=== PATIENT | male | born 1965 | race Caucasian/White ===

== ENCOUNTER 2021-01-08 20:59 | Emergency (ER) | payer BC ==
[2021-01-08 22:25] LABS: HEMOGLOBIN 14.4 gm/dl (14.0-17.5); RED BLOOD COUNT 4.64 M/UL (4.20-5.50); WHITE BLOOD COUNT 18.7 K/UL (4.5-11.0)
== END 2021-01-09 02:30 | disposition short-term general hospital (02) ==
LOC: ER1 20:59
PROVIDERS: Emergency Medicine
DX: I95.9 Hypotension, unspecified (principal); N17.9 Acute kidney failure, unspecified; M62.82 Rhabdomyolysis; F17.200 Nicotine dependence, unspecified, uncomplicated; Z20.822 Contact with and (suspected) exposure to COVID-19
CPT/HCPCS: 71045; 80053; 82550; 82553; 83605; 83735; 83874; 83880; 84100; 84439; 84443; 84484; 85025; 85610; 85730; 87040; 93005; 99285; G0480; U0002

== ENCOUNTER 2021-02-13 18:17 | Emergency (ER) | payer BC ==
[2021-02-13 21:30] LABS: HEMOGLOBIN 15.5 gm/dl (14.0-17.5); RED BLOOD COUNT 4.83 M/UL (4.20-5.50)
== END 2021-02-14 11:25 | disposition short-term general hospital (02) ==
LOC: ER1 18:17
PROVIDERS: Physician Assistant
DX: K57.20 Diverticulitis of large intestine with perforation and abscess without bleeding (principal); I10 Essential (primary) hypertension; F17.200 Nicotine dependence, unspecified, uncomplicated; Z20.822 Contact with and (suspected) exposure to COVID-19
CPT/HCPCS: 80053; 81001; 83605; 83690; 85025; 87040; 87086; 96365; 96375; 96376; 99284; J2270; J2405; J2543; J7030; Q9967; U0002

== ENCOUNTER → 2021-03-28 | Outpatient (CLI) | payer BC | LOC: KOH-I 13:28 | DX: M17.0 Bilateral primary osteoarthritis of knee (principal) | CPT/HCPCS: 73560 ==

== ENCOUNTER 2021-05-24 08:39 | Emergency (ER) | payer BC ==
[2021-05-24 09:22] LABS: RED BLOOD COUNT 4.87 M/UL (4.20-5.50); WHITE BLOOD COUNT 9.4 K/UL (4.5-11.0)
[2021-05-24 09:45] LABS: BUN/CREATININE RATIO 12 (0-10)
== END 2021-05-24 12:30 | disposition home or self-care (01) ==
LOC: ER1 08:39
PROVIDERS: Emergency Medicine
DX: I10 Essential (primary) hypertension (principal); F10.10 Alcohol abuse, uncomplicated; F17.200 Nicotine dependence, unspecified, uncomplicated; Z90.89 Acquired absence of other organs
CPT/HCPCS: 36415; 70450; 71045; 80053; 81001; 82550; 82553; 83874; 84484; 85025; 93005; 96374; 99284; G0480

== ENCOUNTER 2021-08-29 15:28 | Inpatient (IN) | payer BC ==
[~2021-08-29] VITALS: Ht 190.5 cm; Wt 107.0 kg
[2021-08-29 15:52] LABS: RED BLOOD COUNT 5.24 M/UL (4.20-5.50); WHITE BLOOD COUNT 18.8 K/UL (4.5-11.0)
[2021-08-29] MEDS ORDERED: COREG 12.5MG12.5 MG PO (21:44)
[2021-08-29] MEDS ORDERED: LISINOPRIL40 MG PO (21:44)
[2021-08-29] MEDS ORDERED: HYDROCHLOROTHIA50 MG PO (21:45)
[2021-08-29] MEDS ORDERED: PIROXICAM20 MG PO (21:47)
[2021-08-29] MEDS ORDERED: NEURONTIN600 MG PO (21:48)
[2021-08-29] MEDS ORDERED: PERCOCET 5-3251 EACH PO (21:48)
[2021-08-29] MEDS ORDERED: PRAVASTATIN SOD20 MG PO (21:49)
[2021-08-30 05:55] LABS: HEMOGLOBIN 14.4 gm/dl (14.0-17.5); RED BLOOD COUNT 4.72 M/UL (4.20-5.50); WHITE BLOOD COUNT 20.9 K/UL (4.5-11.0)
[2021-08-30] MEDS ORDERED: TIZANIDINE HCL2 MG PO (10:28)
[2021-08-30] MEDS ORDERED: FLONASE 0.05% N16 GM (10:28)
[2021-08-30] MEDS ORDERED: PROAIR HFA8.5 GM INH (10:28)
[2021-08-30] MEDS ORDERED: CYANOCOBAL1000 MCG/1 INJ (10:29)
[2021-08-30] MEDS ORDERED: TESTOSTERO200 MG/1 M IM (10:29)
[2021-08-31 05:23] LABS: HEMOGLOBIN 12.4 gm/dl (14.0-17.5); RED BLOOD COUNT 4.06 M/UL (4.20-5.50)
[2021-08-31 05:53] LABS: BUN/CREATININE RATIO 26 (0-10)
[2021-09-01 05:34] LABS: HEMOGLOBIN 11.7 gm/dl (14.0-17.5); RED BLOOD COUNT 3.89 M/UL (4.20-5.50); WHITE BLOOD COUNT 17.1 K/UL (4.5-11.0)
[2021-09-01 05:45] LABS: BUN/CREATININE RATIO 23 (0-10)
[2021-09-02 04:50] LABS: HEMOGLOBIN 11.3 gm/dl (14.0-17.5); RED BLOOD COUNT 3.78 M/UL (4.20-5.50); WHITE BLOOD COUNT 18.1 K/UL (4.5-11.0)
[2021-09-02 05:11] LABS: BUN/CREATININE RATIO 22 (0-10)
[2021-09-03 03:42] LABS: HEMOGLOBIN 11.3 gm/dl (14.0-17.5); RED BLOOD COUNT 3.74 M/UL (4.20-5.50); WHITE BLOOD COUNT 24.4 K/UL (4.5-11.0)
[2021-09-03 03:46] LABS: BUN/CREATININE RATIO 19 (0-10)
--- NOTE | 2021-09-03 21:59 | NUR ---
PTS DRESSING TO ABD AREA NOTED TO BE SATURATED WITH BLOOD AT TOP OF SITE . DRESSING CHANGED VIA STERILE TECHNIQUE. CLEANED WITH BETADINE AND INCISION NOTED TO BE CLEAN AND INTACT. WILFRID ALL INTACT AND CLEAN. RED TOWARDS BOTTOM OF ABD AREA. PINROSE DRAINS INTACT TO TOP AND BOTTOM OF INCISION. LARGE BLOOD CLOT TO TOP PINROSE. REPLACED GUAZE AND ISLAND DRESSINGS TO SITE. PT TOLERATED WELL.
[2021-09-04 02:58] LABS: RED BLOOD COUNT 3.93 M/UL (4.20-5.50); WHITE BLOOD COUNT 27.7 K/UL (4.5-11.0)
[2021-09-04 03:25] LABS: BUN/CREATININE RATIO 15 (0-10)
--- NOTE | 2021-09-04 11:40 | NUR ---
PT BEING TRANSPORTED TO ENDO FOR PROCEDURE
--- NOTE | 2021-09-04 12:15 | NUR ---
PT BACK FROM PROCEDURE, PT ALERT AND ORIENTED,VSS, WILL CONTINUE TO MONITOR
[2021-09-05 05:07] LABS: HEMOGLOBIN 11.5 gm/dl (14.0-17.5); RED BLOOD COUNT 3.85 M/UL (4.20-5.50); WHITE BLOOD COUNT 19.2 K/UL (4.5-11.0)
[2021-09-05 05:35] LABS: BUN/CREATININE RATIO 12 (0-10)
[2021-09-05 12:21] LABS: ADENOVIRUS F 40/41 Not Detected (Negative); ASTROVIRUS Not Detected (Negative); CAMPYLOBACTER Not Detected (Negative); CRYPTOSPORIDIUM Not Detected (Negative); E.COLI 0157 Not Detected (Negative); ENTAMOEBA HISTOLYTICA Not Detected (Negative); ENTEROAGGREGATIVE E.COLI (EAEC Not Detected (Negative); ENTEROPATHOGENIC E.COLI (EPEC) Not Detected (Negative); ENTEROTOXIGENIC E.COLI (ETEC) Not Detected (Negative); GIARDIA LAMBLIA Not Detected (Negative); NOROVIRUS GI/GII Not Detected (Negative); PLESIOMONAS SHIGELLOIDES Not Detected (Negative); ROTOVIRUS A Not Detected (Negative); SALMONELLA Not Detected (Negative); SAPOVIRUS Not Detected (Negative); SHIG/ENTEROINVAS.ECOLI (EIEC) Not Detected (Negative); SHIGA-LIK TOX.PRO.E.COLI (STEC Not Detected (Negative); VIBRIO Not Detected (Negative); VIBRIO CHOLERAE Not Detected (Negative); YERSINIA ENTEROCOLITICA Not Detected (Negative)
[2021-09-06 04:02] LABS: HEMOGLOBIN 11.8 gm/dl (14.0-17.5); RED BLOOD COUNT 3.97 M/UL (4.20-5.50); WHITE BLOOD COUNT 15.6 K/UL (4.5-11.0)
[2021-09-06 04:18] LABS: BUN/CREATININE RATIO 13 (0-10)
[2021-09-07 06:06] LABS: HEMOGLOBIN 12.4 gm/dl (14.0-17.5); RED BLOOD COUNT 4.22 M/UL (4.20-5.50); WHITE BLOOD COUNT 16.6 K/UL (4.5-11.0)
[2021-09-07 06:27] LABS: BUN/CREATININE RATIO 13 (0-10)
[2021-09-07] MEDS ORDERED: COLACE100 MG PO (11:31)
[2021-09-07] MEDS ORDERED: METRONIDAZOLE500 MG PO (11:31)
[2021-09-07] MEDS ORDERED: PERCOCET 5-3251 EACH PO (11:31)
[2021-09-07] MEDS ORDERED: VANCOMYCIN HCL125 MG PO (11:57)
== END 2021-09-07 13:51 | disposition home or self-care (01) | DRG 853 ==
LOC: ER1 15:28 → M/S 17:22 → CDU 17:22 → PROG CARE 17:22 → CCU 22:10 → PROG CARE 09-02 17:03 → M/S 09-06 05:24
PROVIDERS: Internal Medicine; Physician Assistant; Surgery; ADMIT Internal Medicine
PROC: 3E043XZ Introduction of Vasopressor into Central Vein, Percutaneous Approach (ICD-10-PCS; 2021-08-29)
PROC: 3E04329 Introduction of Other Anti-infective into Central Vein, Percutaneous Approach (ICD-10-PCS; 2021-08-29)
PROC: 0DU907Z Supplement Duodenum with Autologous Tissue Substitute, Open Approach (ICD-10-PCS; principal; 2021-08-29 18:43)
PROC: 0DJD8ZZ Inspection of Lower Intestinal Tract, Via Natural or Artificial Opening Endoscopic (ICD-10-PCS; 2021-09-04)
DX: A41.9 Sepsis, unspecified organism (principal); K26.5 Chronic or unspecified duodenal ulcer with perforation; R65.21 Severe sepsis with septic shock; Z20.822 Contact with and (suspected) exposure to COVID-19; K55.039 Acute (reversible) ischemia of large intestine, extent unspecified; N17.9 Acute kidney failure, unspecified; A04.72 Enterocolitis due to Clostridium difficile, not specified as recurrent; K57.20 Diverticulitis of large intestine with perforation and abscess without bleeding; F17.210 Nicotine dependence, cigarettes, uncomplicated; B19.20 Unspecified viral hepatitis C without hepatic coma; F10.10 Alcohol abuse, uncomplicated; I10 Essential (primary) hypertension; Z98.890 Other specified postprocedural states; Z80.3 Family history of malignant neoplasm of breast
CPT/HCPCS: 36415; 71045; 80048; 80053; 82150; 82550; 82553; 83605; 83690; 83874; 84484; 85025; 85027; 85610; 85730; 86850; 86900; 86901; 87040; 87507; 96374; 96375; 96376; 99285; J1100; J1170; J1644; J2001; J2185; J2250; J2270; J2370; J2405; J2543; J2704; J3010; J3480; J7040; J7120; Q9963; Q9967; U0002

== ENCOUNTER → 2021-11-12 | Outpatient (CLI) | payer OTHER ==
[~2021-11-12] MED LIST: COLACE100 MG PO; COREG 12.5MG12.5 MG PO; CYANOCOBAL1000 MCG/1 INJ; FLONASE 0.05% N16 GM; HYDROCHLOROTHIA50 MG PO; LISINOPRIL40 MG PO; METRONIDAZOLE500 MG PO; NEURONTIN600 MG PO; PERCOCET 5-3251 EACH PO; PIROXICAM20 MG PO; PRAVASTATIN SOD20 MG PO; PROAIR HFA8.5 GM INH; TESTOSTERO200 MG/1 M IM; TIZANIDINE HCL2 MG PO; VANCOMYCIN HCL125 MG PO
== END ==
LOC: KOH-I 10:18
DX: M25.511 Pain in right shoulder (principal); M25.562 Pain in left knee
CPT/HCPCS: 73030; 73564

== ENCOUNTER → 2021-12-10 | Outpatient (CLI) | payer BC | LOC: KOH-I 15:36 | DX: M19.011 Primary osteoarthritis, right shoulder (principal); M71.311 Other bursal cyst, right shoulder; M75.81 Other shoulder lesions, right shoulder; S43.001A Unspecified subluxation of right shoulder joint, initial encounter; X58.XXXA Exposure to other specified factors, initial encounter | CPT/HCPCS: 73221 ==